=== PATIENT | male | born 1980 | race Caucasian/White ===

== ENCOUNTER → 2023-11-23 14:46 | Outpatient (REF) | payer OTHER, SELFPAY ==
[2023-11-23 16:33] LABS: Erythrocyte Sed Rate 4 mm/hour (0-20)
[2023-11-23 16:35] LABS: D-Dimer < 0.27 ug/mlFEU (0.00-0.50)
[2023-11-23 16:48] LABS: C-Reactive Protein < 5.00 mg/L (0.0-10.00)
[2023-11-27 15:49] LABS: Rheumatoid Agglutinin Less Than 10 IU (<10 IU)
== END ==
LOC: REG 14:46
PROVIDERS: ATTENDING PHYSICIAN Internal Medicine Critical Care Medicine; FAMILY PHYSICIAN Family Medicine
DX: R07.89 Other chest pain (principal)
CPT/HCPCS: 36415; 85379; 85652; 86140; 86430

== ENCOUNTER → 2023-12-28 15:21 | Outpatient (REF) | payer OTHER, SELFPAY | LOC: RAD 15:21 | PROVIDERS: ATTENDING PHYSICIAN Internal Medicine Critical Care Medicine; FAMILY PHYSICIAN Family Medicine | DX: R07.89 Other chest pain (principal); R07.81 Pleurodynia | CPT/HCPCS: 71250; 93306 ==

== ENCOUNTER → 2024-02-09 09:46 | Outpatient (REF) | payer OTHER, SELFPAY | LOC: RCS 09:46 | PROVIDERS: ATTENDING PHYSICIAN Internal Medicine Cardiovascular Disease; FAMILY PHYSICIAN Family Medicine | DX: R07.89 Other chest pain (principal) | CPT/HCPCS: 93017; 93350 ==

== ENCOUNTER → 2025-03-19 10:50 | Outpatient (REF) | payer OTHER, SELFPAY ==
[2025-03-19 12:01] LABS: Urine Character Clear (Clear)
[2025-03-19 12:25] LABS: Iron 159 ug/dl (49-181)
[2025-03-19 12:35] LABS: Total Iron Binding Capacity 272 ug/dl (261-462)
[2025-03-19 12:43] LABS: Vitamin D, 25-OH*** 43.3 ng/mL (30-80)
[2025-03-19 12:56] LABS: TSH 0.92 uIU/ml (0.47-4.68)
[2025-03-19 13:00] LABS: Ferritin 288.0 ng/ml (17.9-464.0)
[2025-03-22 22:06] LABS: Albumin 5.00 g/dL (3.75-5.01); Free Kappa Light Chains,Quant 12.58 mg/L (3.30-19.40); Free Lambda Light Chains,Quant 9.53 mg/L (5.71-26.30); Immunofixation Electrophoresis IFE Done; Kappa/Lambda Fr Light Ratio 1.32 (0.26-1.65); Total Protein-Electrophoresis 7.5 g/dL (6.3-8.2)
== END ==
LOC: REG 10:50
PROVIDERS: ATTENDING PHYSICIAN Physician Assistant; FAMILY PHYSICIAN Family Medicine
DX: M79.644 Pain in right finger(s) (principal); H04.123 Dry eye syndrome of bilateral lacrimal glands; R53.83 Other fatigue; R68.2 Dry mouth, unspecified
CPT/HCPCS: 36415; 81003; 82306; 82570; 82728; 82784; 82785; 83521; 83540; 83550; 84155; 84156; 84165; 84443; 86160; 86334